=== PATIENT | female | born 1940 ===

== ENCOUNTER 2024-02-21 16:29 | Emergency (ER) | payer SELFPAY ==
[~2024-02-21] VITALS: Ht 147.3 cm; Wt 48.0 kg
[~2024-02-21 16:29] MED LIST: Advil200 M1 PO; Calcium 500 MG1 EACH PO; OMEG1CAP30 PO
[2024-02-21] MEDS ORDERED: Bactrim Ds Tab1 EACH PO (17:24)
[2024-02-21] MEDS ORDERED: Trimethoprim/Sulfamethoxazole DS Tab PO ONE (17:25)
== END 2024-02-21 17:49 | disposition home or self-care (01) ==
LOC: ER 16:29
DX: I83.013 Varicose veins of right lower extremity with ulcer of ankle (principal); L97.319 Non-pressure chronic ulcer of right ankle with unspecified severity; L03.115 Cellulitis of right lower limb; Z88.8 Allergy status to other drugs, medicaments and biological substances; Z79.899 Other long term (current) drug therapy
CPT/HCPCS: 99283; A9270

== ENCOUNTER 2024-03-12 09:19 | Emergency (ER) | payer OTHER ==
[~2024-03-12] VITALS: Ht 157.5 cm; Wt 47.0 kg
[~2024-03-12 09:19] MED LIST changes: +Bactrim Ds Tab1 EACH PO
[2024-03-12 11:00] LABS: BASOPHILS ABSOLUTE AUTO 0.02 K/mm3 (0.00-0.23); BASOPHILS PERCENT AUTO 0 % (0-2); EOSINOPHILS ABSOLUTE AUTO 0.16 K/mm3 (0.00-0.68); EOSINOPHILS PERCENT AUTO 4 % (0-6); Hematocrit 31.9 % (33.0-51.0); Hemoglobin 10.3 g/dL (11.5-16.0); IMMATURE GRAN ABSOLUTE AUTO 0.02 K/mm3 (0.00-0.10); IMMATURE GRAN PERCENT AUTO 0 % (0-1); LYMPHOCYTES ABSOLUTE AUTO 0.84 K/mm3 (0.84-5.20); LYMPHOCYTES PERCENT AUTO 18 % (21-46); MONOCYTES PERCENT AUTO 9 % (4-13); Mean Corpuscular HGB Conc 32.3 g/dL (31.5-36.5); Mean Corpuscular Volume 93 fL (80-100); Mean Platelet Volume 9.5 fL (9.1-12.4); NEUTROPHILS ABSOLUTE AUTO 3.18 K/mm3 (1.96-9.15); NEUTROPHILS PERCENT AUTO 69 % (41-73); Platelet Count 179 K/mm3 (150-400); RDW Coefficient Variation 12.9 % (11.7-14.2); Red Blood Cell Count 3.43 M/mm3 (3.80-5.20); White Blood Cell Count 4.62 K/mm3 (4.00-11.30)
[2024-03-12 11:22] LABS: Albumin, Blood 3.1 g/dL (3.4-5.0); Albumin/Globulin Ratio 0.8 (0.8-1.8); Bilirubin, Total 0.4 mg/dL (0.1-1.0); Bun/Creatinine Ratio 37.2 (12.0-20.0); Calcium, Blood 8.8 mg/dL (8.5-10.1); Creatinine, Blood 0.73 mg/dL (0.40-1.00); Globulin, Blood 3.8 g/dL (2.2-4.0); Potassium, Blood 4.1 mmol/L (3.5-5.5); Total Protein, Blood 6.9 g/dL (6.4-8.2)
[2024-03-12] MEDS ORDERED: CEPH500 PO (12:18)
[2024-03-12] MEDS ORDERED: BACITO TOP (12:18)
[2024-03-12] MEDS ORDERED: Bactrim Ds Tab1 EACH PO (12:18)
== END 2024-03-12 12:50 | disposition home or self-care (01) ==
LOC: ER 09:19
PROVIDERS: Physician Assistant
DX: L03.115 Cellulitis of right lower limb (principal); L02.415 Cutaneous abscess of right lower limb; Z79.899 Other long term (current) drug therapy; Z88.8 Allergy status to other drugs, medicaments and biological substances
CPT/HCPCS: 73600; 80053; 83605; 85025; 87070; 87075; 87077; 87147; 87186; 87205; 93971; 99284-25